=== PATIENT | female | born 1980 | race Caucasian/White ===

== ENCOUNTER 2019-08-14 09:15 | Emergency (ER) | payer OTHER ==
[~2019-08-14] VITALS: Ht 160 cm; Wt 72.1 kg
[2019-08-14] MEDS ORDERED: ZYRTEC10 M2 (09:29)
[2019-08-14] MEDS ORDERED: ALLEGRA ALLERGY60 MG (09:29)
[2019-08-14] MEDS ORDERED: SYMBICORT 16010.2 GM (09:30)
[2019-08-14] MEDS ORDERED: KETO10TA2 PO (12:14)
== END 2019-08-14 12:30 | disposition home or self-care (01) ==
LOC: ER 09:15
DX: S00.83XA Contusion of other part of head, initial encounter (principal); W10.8XXA Fall (on) (from) other stairs and steps, initial encounter; Y93.89 Activity, other specified; Y92.89 Other specified places as the place of occurrence of the external cause; Y99.8 Other external cause status